=== PATIENT | female | born 1980 | race Caucasian/White ===

== ENCOUNTER 2020-07-24 19:03 | Emergency (ER) | payer BC ==
[2020-07-24] MEDS ORDERED: DEXAMETHASONE SOD PHOSPHATE INJ 4 MG/1 ML VIAL IV ONE (20:02)
[2020-07-24] MEDS ORDERED: IPRATROPIUM/ALBUTEROL 0.5-2.5 MG/3 ML AMPUL NEB ONE (20:02)
--- NOTE | 2020-07-24 20:03 | ER Document Report ---
ED Medical Screen (RME) - General Chief Complaint: Shortness Of Breath Stated Complaint: SHORTNESS OF BREATH Time Seen by Provider: 07/24/20 19:58 Notes: HPI: 40-year-old female with asthma and diabetes history presenting for increasing shortness of breath over the last 5 to 6 days. Low-grade fevers at home body aches and chills when symptoms started. Called her PCP had a Covid test done on Tuesday does not have results. Increasing shortness of breath especially with exertion over the last 2 days PHYSICAL EXAMINATION: Lung sounds are decreased but no active wheezing is noted at this time she does become dyspneic with speaking. I have greeted and performed a rapid initial assessment of this patient. A comprehensive ED assessment and evaluation of the patient, analysis of test results and completion of medical decision making process will be conducted by an additional ED providers. Please note that clinical decision making for this patient was made during the 2019 pandemic of novel coronavirus which caused a significant strain on the healthcare system including at this particular facility. Criteria for admission discharge and level of care decisions as well as treatment decisions have necessarily changed Physical Exam - Vital signs Vitals: Temp Pulse Resp BP Pulse Ox 97.8 F 96 16 179/101 H 97 07/24/20 19:07 07/24/20 19:07 07/24/20 19:07 07/24/20 19:07 07/24/20 19:07 Course - Vital Signs Vital signs: Temp Pulse Resp BP Pulse Ox 97.8 F 96 16 179/101 H 97 07/24/20 19:07 07/24/20 19:07 07/24/20 19:07 07/24/20 19:07 07/24/20 19:07
--- NOTE | 2020-07-24 20:38 | RADIOLOGY REPORT (SQ) ---
CLINICAL INDICATION: sob. TECHNIQUE: A single portable AP view was obtained of the chest at 2028 hours. COMPARISON: None. FINDINGS: The cardiomediastinal silhouette is normal. The lungs demonstrate platelike atelectasis or scar left lung base. No consolidation or edema. No evidence of effusion or pneumothorax. The visualized bones are unremarkable. IMPRESSION: No evidence of active intrathoracic disease.
[2020-07-24] MEDS ORDERED: ONDANSETRON HCL INJ/PF 4 MG/2 ML SDV IV ONE (20:46)
[2020-07-24 20:52] LABS: ABSOLUTE BASOPHILS # (AUTO) 0.1 10^3/uL (0.0-0.2); ABSOLUTE EOSINOPHILS # (AUTO) 0.1 10^3/uL (0.0-0.6); ABSOLUTE LYMPHOCYTES (AUTO) 3.3 10^3/uL (0.5-4.7); ABSOLUTE NEUT (AUTO) 6.7 10^3/uL (1.7-8.2); BASOPHILS % (AUTO) 0.7 % (0-2); HEMATOCRIT 45.9 % (36.0-47.0); HEMOGLOBIN 15.2 g/dL (12.0-15.5); LYMPHOCYTES % (AUTO) 29.9 % (13-45); MEAN CORPUSCULAR VOLUME 91 fl (80-97); MONOCYTES % (AUTO) 8.7 % (3-13); PLATELET COUNT 320 10^3/uL (150-450); RED BLOOD COUNT 5.05 10^6/uL (3.72-5.28); RED CELL DISTRIBUTION WIDTH 13.6 % (11.5-14.0); SEGMENTED NEUTROPHILS % (AUTO) 59.7 % (42-78); TOTAL CELLS COUNTED % (AUTO) 100 %; WHITE BLOOD COUNT 11.2 10^3/uL (4.0-10.5)
--- NOTE | 2020-07-24 21:05 | ER Document Report ---
ED Respiratory Problem - General Chief Complaint: Shortness Of Breath Stated Complaint: SHORTNESS OF BREATH Time Seen by Provider: 07/24/20 19:58 Primary Care Provider: JESSI CRUZ DO [NO LOCAL MD] - Follow up as needed Mode of Arrival: Ambulatory Information source: Patient Notes: 40-year-old female presents to the emergency room complaining of nausea, fatigue, and shortness of breath for the past week. Denies any fevers. No known COVID-19 exposure. Patient states she did do a telecall with a doc on Tuesday who recommended a Covid test she states she had a Covid test on Tuesday but has not yet has not received her results. Decreased appetite but is tole rating p.o. fluids. Has been taking Zofran at home with some relief. TRAVEL OUTSIDE OF THE [place] IN LAST 30 DAYS: No - Related Data Allergies/Adverse Reactions: Penicillins Allergy (Verified 07/24/20 20:03) Home Medications: metformin. gliburide. zofran Past Medical History - General Information source: Patient - Social History Smoking Status: Never Smoker Frequency of alcohol use: Occasional Drug Abuse: None Family History: Reviewed & Not Pertinent Review of Systems - Review of Systems Constitutional: Malaise EENT: No symptoms reported Cardiovascular: No symptoms reported Respiratory: Short of breath Gastrointestinal: Nausea. denies: Abdominal pain, Diarrhea, Vomiting, Constipation Musculoskeletal: No symptoms reported Hematologic/Lymphatic: No symptoms reported Neurological/Psychological: No symptoms reported -: Yes All other systems reviewed and negative Physical Exam - Vital signs Vitals: Temp Pulse Resp BP Pulse Ox 97.8 F 96 16 179/101 H 97 07/24/20 19:07 07/24/20 19:07 07/24/20 19:07 07/24/20 19:07 07/24/20 19:07 - General General appearance: Appears well, Alert In distress: Mild - HEENT Head: Normocephalic, Atraumatic Eyes: Normal Pupils: PERRL - Respiratory Respiratory status: No respiratory distress Chest status: Nontender Breath sounds: Normal Chest palpation: Normal - Cardiovascular Rhythm: Regular Heart sounds: Normal auscultation Murmur: No - Neurological Neuro grossly intact: Yes Cognition: Normal Orientation: AAOx4 [place] Coma Scale Eye Opening: Spontaneous [place] Coma Scale Verbal: Oriented [place] Coma Scale Motor: Obeys Commands [place] Coma Scale Total: 15 Speech: Normal Motor strength normal: LUE, RUE, LLE, RLE Sensory: Normal - Skin Skin Temperature: Warm Skin Moisture: Dry Skin Color: Normal Course - Re-evaluation Re-evalutation: 07/24/20 21:26 Patient is resting comfortably symptoms have improved. Vital signs are stable. Reviewed lab and x-ray results with patient. Aware of slightly elevated liver enzymes. Counseled to follow-up outpatient with a primary care physician for management of her elevated liver enzymes. Her Covid test is still pending new Covid testing not warranted at this time. Discussed treatment options with the patient. Case was staffed with my ED attending Dr. Farley who recommends Decadron 10 mg daily for 5 days, recommend vitamin D3 4000 units daily, vitamin C 2000 mg twice daily, quercetin 250 mg twice daily, zinc 100 mg daily, melatonin 10 mg nightly, Pepcid 20 mg twice daily, ivermectin 12 mg on day 1 and day 3. Patient states she has Zofran at home that was given to her Tuesday when she had her telemetry doc appointment. Counseled importance of an outpatient follow-up with a primary care physician if not improving in 2 to 3 days. On- call physician will be provided. Patient was given strict return to the emergency room guidelines. Return for any new or worsening symptoms. All questions were answered. Patient verbalized understanding and agrees with plan of care. 07/24/20 21:33 07/24/20 21:52 Patient just notified provider that she received a negative Covid test from [facility]. Patient also states that she self swab herself patient is agreeable to have us retest her by having one of the nurses do the swab. She is aware she will notified in 3 to 5 days for test results. Patient was evaluated during the global COVID-19 pandemic and that diagnosis was suspected/considered upon their initial presentation. Their evaluation, treatment and testing was consistent with current guidelines for patients who presents with complaints or systems that may be related to COVID-19. 07/24/20 23:28 - Vital Signs Vital signs: Temp Pulse Resp BP Pulse Ox 97.8 F 96 13 156/112 H 97 07/24/20 19:07 07/24/20 19:07 07/24/20 22:02 07/24/20 22:02 07/24/20 22:02 - Laboratory Results Result Diagrams: 07/24/20 20:35 07/24/20 20:35 Laboratory Results Interpreted: 07/24/20 07/24/20 20:35 20:35 WBC 11.2 H Glucose 118 H Calcium 10.4 H AST 56 H ALT 58 H Critical Laboratory Results Reviewed: No Critical Results - Radiology Results Critical Radiology Results Reviewed: No Critical Results - EKG Interpretation by Me EKG shows normal: Sinus rhythm Rate: Normal Additional EKG results interpreted by me: 07/24/20 21:05 EKG was interpreted by ER physician Dr. Farley Acute STEMI Rate [address] wave abnormalities No previous EKG for comparison Discharge - Discharge Clinical Impression: Person under investigation for COVID-19, Nausea, Elevated liver enzymes Dyspnea Qualifiers: Dyspnea type: unspecified Qualified Code(s): R06.00 - Dyspnea, unspecified Condition: Stable Disposition: HOME, SELF-CARE Instructions: COVID-19 Guidance for Persons Under Investigation, Dyspnea, Nonspecific ([facility]), Nausea or Vomiting, Nonspecific ([facility]), Liver Function Abnormality ([facility]) Additional Instructions: You need to self quarantine for the next 14 days unless you get a negative Covid result back. Take Zofran as previously prescribed. Take the ivermectin, Decadron, and Zithromax as prescribed also use the following [id number] medications vitamin D3 4000 IU daily, vitamin C 2000 mg twice daily, zinc 100 mg daily, Quercetin 200 mg twice a day. Pepcid 20 mg twice a day, . Outpatient follow with primary care physician if not proving in 2 to 3 days. Prescriptions: Dexamethasone [Decadron] 6 mg PO DAILY 5 Days #5 tablet Ivermectin [Stromectol 3 mg Tablet] 12 mg PO DAILY 2 Days #8 tablet Azithromycin [Zithromax 250 mg Tablet] 250 mg PO ASDIR PRN #6 tablet PRN Reason: Referrals: JESSI CRUZ DO [NO LOCAL MD] - Follow up as needed
[2020-07-24 21:09] LABS: ALBUMIN 4.7 g/dL (3.5-5.0); ALKALINE PHOSPHATASE 83 U/L (38-126); ANION GAP 12 (5-19); ASPARTATE AMINO TRANSFERASE 56 U/L (14-36); BILIRUBIN,DIRECT 0.2 mg/dL (0.0-0.4); BILIRUBIN,TOTAL 0.8 mg/dL (0.2-1.3); BLOOD UREA NITROGEN 10 mg/dL (7-20); CALCIUM 10.4 mg/dL (8.4-10.2); CARBON DIOXIDE 27 mmol/L (22-30); CHLORIDE 101 mmol/L (98-107); GLUCOSE 118 mg/dL (75-110); POTASSIUM 4.4 mmol/L (3.6-5.0)
[2020-07-24 22:33] VITALS: BP 156/112
--- NOTE | 2020-07-25 09:51 | EKG REPORT ---
SEVERITY:- NORMAL ECG - SINUS RHYTHM : Confirmed by: Casimiro Pardo MD 25-Jul-2020 09:50:46
== END 2020-07-24 22:31 | disposition home or self-care (01) ==
LOC: ER 19:03
DX: R06.02 Shortness of breath (principal); R11.0 Nausea; R53.83 Other fatigue; R63.0 Anorexia; R53.81 Other malaise; R74.8 Abnormal levels of other serum enzymes; Z79.84 Long term (current) use of oral hypoglycemic drugs; Z88.0 Allergy status to penicillin; Z20.822 Contact with and (suspected) exposure to COVID-19
CPT/HCPCS: 94640; 99285; 96374; 36415; 84703; 85025; 80053; 84484; 71045; 93005; 93010; U0003; J1100; C9803; 87635